=== PATIENT | female | born 1955 | race Native Hawaiian/Other Pacific Islander ===

== ENCOUNTER 2016-09-25 16:00 | Outpatient (CLI) | payer OTHER ==
[2016-09-25 16:23] LABS: PLATELET COUNT 226 K/uL (152-353)
[2016-09-25 16:34] LABS: POTASSIUM 4.7 mmol/L (3.6-5.2); SODIUM 141 mmol/L (136-145)
== END 2016-09-25 22:43 | disposition home or self-care (01) ==
LOC: LABW 16:00
PROVIDERS: Nurse Practitioner Family
DX: Z79.899 Other long term (current) drug therapy (principal); Z51.81 Encounter for therapeutic drug level monitoring
CPT/HCPCS: 36415; 80053; 85027

== ENCOUNTER 2017-01-01 14:14 | Outpatient (CLI) | payer OTHER ==
[2017-01-01 14:33] LABS: PLATELET COUNT 195 K/uL (152-353)
[2017-01-01 14:45] LABS: POTASSIUM 4.1 mmol/L (3.6-5.2); SODIUM 137 mmol/L (136-145)
== END 2017-01-01 19:10 | disposition home or self-care (01) ==
LOC: LABW 14:14
PROVIDERS: Nurse Practitioner Family
DX: B35.4 Tinea corporis (principal); Z79.899 Other long term (current) drug therapy; Z51.81 Encounter for therapeutic drug level monitoring
CPT/HCPCS: 36415; 80053; 85027